=== PATIENT | male | born 1995 | race Caucasian/White ===

== ENCOUNTER 2016-11-22 12:28 | Emergency (ER) | payer OTHER ==
[~2016-11-22] VITALS: Ht 175.3 cm; Wt 81.8 kg
[2016-11-22 12:35] VITALS: PULSE 90; TEMP 97.8
[2016-11-22 14:15] VITALS: BP 145/67
== END 2016-11-22 14:15 | disposition home or self-care (01) ==
LOC: COL.ER 12:28
DX: S06.0X0A Concussion without loss of consciousness, initial encounter (principal); S00.01XA Abrasion of scalp, initial encounter; S00.81XA Abrasion of other part of head, initial encounter; V18.0XXA Pedal cycle driver injured in noncollision transport accident in nontraffic accident, initial encounter
CPT/HCPCS: J1885